=== PATIENT | female | born 1945 | race Caucasian/White ===

== ENCOUNTER 2024-10-04 12:12 | Outpatient (CLI) | payer MEDICARE, BC | END 2024-10-04 12:13 | disposition home or self-care (01) | LOC: CSHMAMMO 12:12 | PROVIDERS: ATTEND Student in an Organized Health Care Education/Training Program | DX: Z12.31 Encounter for screening mammogram for malignant neoplasm of breast (principal); Z80.3 Family history of malignant neoplasm of breast | CPT/HCPCS: 77063; 77067 ==

== ENCOUNTER 2025-06-17 15:01 | Emergency (ER) | payer MEDICARE, BC ==
[2025-06-17] MEDS ORDERED: Acetaminophen 500 MG TAB ONE (15:32)
== END 2025-06-17 18:00 | disposition home or self-care (01) ==
LOC: CSHERS 15:01
DX: S22.41XA Multiple fractures of ribs, right side, initial encounter for closed fracture (principal); S62.316A Displaced fracture of base of fifth metacarpal bone, right hand, initial encounter for closed fracture; S00.03XA Contusion of scalp, initial encounter; S00.83XA Contusion of other part of head, initial encounter; S80.212A Abrasion, left knee, initial encounter; S80.211A Abrasion, right knee, initial encounter; W01.0XXA Fall on same level from slipping, tripping and stumbling without subsequent striking against object, initial encounter; Y93.01 Activity, walking, marching and hiking
CPT/HCPCS: 70450; 71111